=== PATIENT | female | born 1980 ===

== ENCOUNTER 2023-04-11 06:10 | Observation (INO) | payer BC ==
[2023-04-11] MEDS ORDERED: CEFOXITIN SODIUM 2 GM/VIAL ONE (06:33)
[2023-04-11] MEDS ORDERED: Ringers Lactate 1,000 ML IV ONE ×2 (06:34→10:17)
[2023-04-11] MEDS ORDERED: BUPIVACAINE 0.25% PF 30 ML VIAL ONE (06:51)
[2023-04-11] MEDS ORDERED: NEOSTIGMINE 1 MG/ML -10 ML VIAL ONE (07:14)
[2023-04-11] MEDS ORDERED: ROCURONIUM 50 MG/5 ML VIAL IV ONE ×3 (07:14→11:12)
[2023-04-11] MEDS ORDERED: LIDOCAINE 2% MPF 5 ML VIAL ONE (07:14)
[2023-04-11] MEDS ORDERED: propofoL 200 MG/20 ML VIAL IV ONE ×2 (07:14→09:42)
[2023-04-11] MEDS ORDERED: GLYCOPYRROLATE 0.2 MG/ML SYR ONE (07:14)
[2023-04-11] MEDS ORDERED: ONDANSETRON 4 MG/2 ML VIAL ONE ×2 (07:14→09:44)
[2023-04-11] MEDS ORDERED: FENTANYL CITR 100 MCG/2 ML ONE ×3 (07:14→13:13)
[2023-04-11] MEDS ORDERED: MIDAZOLAM HCL 2 MG/2 ML INJ ONE ×2 (07:15→09:43)
[2023-04-11 07:19] LABS: Albumin 4.2 g/dL (3.4-5.0); Bilirubin Total 2.7 mg/dL (0.2-1.0); Potassium 3.7 mEq/L (3.5-5.1); Protein, Total 7.6 g/dL (6.4-8.2)
[2023-04-11] MEDS ORDERED: LIDOCAINE 1% MPF 5 ML VIAL ONE (09:42)
[2023-04-11] MEDS ORDERED: dexAMETHasone 4 MG/ML VIAL ONE ×2 (09:44→14:07)
[2023-04-11] MEDS ORDERED: KETOROLAC 30 MG/ML INJ ONE (10:44)
--- NOTE | 2023-04-11 13:19 | P.OP ---
Preoperative diagnosis: Choledocholithiasis with cholecystitis Postoperative diagnosis: Choledocholithiasis with cholecystitis Primary procedure: Laparoscopic Cholecystectomy with ICG and Contrast Cholaniography with inte Secondary procedure: Laparoscopic Common bile duct exploration Anesthesia: GETA + Local Estimated blood loss: <10cc Specimen: Gallbladder Findings: Filling defect noted, completion cholangiograpy clear Complications: None Drain(s): ERIKA drain (10mm Flat) Transferred to: Recovery Room Condition: Good
--- NOTE | 2023-04-11 13:22 | EKG ---
Test Date: 2023-04-11 Test Time: 07:39:32 Oiler Helper: TF MEASUREMENT RESULTS: Intervals: Rate: 73 MO: 138 QRSD: 74 QT: 390 QTc: 429 [place]: P: 56 MO: 138 QRS: 35 T: 44 INTERPRETIVE STATEMENTS: Normal sinus rhythm Normal ECG No previous ECG available for comparison Electronically Signed On 04-11-23 13:22:11 COIN WRAPPING MACHINE OPERATOR by Lenin Manjarrez
[2023-04-11] MEDS ORDERED: ONDANSETRON 4 MG/2 ML VIAL IV PRN (13:44)
[2023-04-11] MEDS ORDERED: PROMETHAZINE INJ 25 MG/ML AMP ONE (13:53)
--- NOTE | 2023-04-11 14:24 | RAD REPORT ---
EXAM DESCRIPTION: RAD - Cholangiogram Oper-Xray Or - 04/11/2023 2:13 pm CLINICAL HISTORY: LAP KIRSTEN WITH IOC COMPARISON: <Comparisons> FINDINGS: Cystic duct injection was performed by operating surgeon. Common duct is normal in size. M ultiple rounded lucencies within the common duct proximally favored to represent small air bubbles. Total fluoro time: 1.4 minutes
[2023-04-11] MEDS: D5.45NS W/KCL 20MEQ 1,000 ML IV SCH (14:50)
[2023-04-11 15:19] VITALS: BMI 39.2
[2023-04-11] MEDS: INSULIN REGULAR (HUMAN) 100 UNIT/ML SQ SCH ×2 (16:27→21:00)
[2023-04-11] MEDS: PIPER TAZO 3.375 GM in NA CHLORIDE 0.9% 100 ML IV SCH (16:52)
[2023-04-11] MEDS: HYDROCODONE/APAP 7.5/325 MG TAB PO PRN ×2 (16:58→23:46)
[2023-04-11] MEDS: HYDROMORPHONE HCL 1 MG/ML INJ IV PRN (20:09)
[2023-04-11 23:33] VITALS: O2SAT 99
--- NOTE | 2023-04-12 00:08 | OP ---
Date of Procedure: 04/11/2023 Surgeon: Andreas Peralta MD, Preoperative Diagnoses: Choledocholithiasis with cholecystitis. Postoperative Diagnoses: Choledocholithiasis with cholecystitis. Procedure Performed: Laparoscopic cholecystectomy with indocyanine green cholangiography, contrast c holangiography with intraoperative interpretation and laparoscopic common bile duct exploration with SpyGlass technology. Anesthesia: General endotracheal plus local with 0.25% Marcaine. Estimated Blood Loss: Less than 10 cc. Specimen: Gallbladder. Findings: There was a filling defect noted on cholangiography and as such, a laparoscopic common christiano e duct exploration was performed. I believe the stone was passed into the duodenum and completion ch olangiography was clear. Complications: None. Drains: A 10 mm flat ERIKA drain placed in the subhepatic fossa. Disposition: Patient transferred to recovery room in good condition. Procedure In Detail: After informed consent was obtained, patient brought to the operating room, pre pped and draped in usual sterile fashion. After adequate anesthesia was achieved, I anesthetized the area in the supraumbilical position down to subcutaneous tissues. A 5 mm 0 degree optical trocar wa s introduced in the abdomen without incident or complication. Insufflation was obtained to 15 mmHg a t this time. There was no injury to vital structures including the abdomen. Three additional trocar s were placed, one in the epigastric, one in the right upper quadrant, one in the right mid abdomen. All these were similarly anesthetized, sharply incised. A 5 mm trocar was placed under direct visua lization without incident or complication. The umbilical trocar was then upsized to [address] visualization without incident or complication. At this point, I dissected down to grasp the gall bladder and place it towards the patient's right shoulder, dissection to kidney down and the critical view of safety was obtained after 2 structures were identified and identified both the cystic duct, cystic artery. I placed double titanium clips on the cystic artery at this point and ligated the str ucture after critical view of safety was obtained. At this point, an indocyanine green cholangiograp hy verified the anatomy. At this point, I circumferentially dissected free the cystic duct once agai n, skeletonized the structure, made a small mateus incision at the insertion site of the cystic duct ga llbladder junction, placed a clip on the proximal side. I then dissected down to place the cholangio gram catheter. Cholangiogram was shot at this point with 50:50 Isovue. At this point, I visualized the cholangiogram and saw a possible filling defect near the cystic duct, common duct junction. Slig htly superior to that, there were several filling defects consistent with possible stones and as such , at this point, a wire was placed after removal of the cholangiogram catheter. The sheath was intro duced at this point. The wire was advanced into the duodenum. X-ray confirmed the position in the d uodenum at this point. I then placed the introducer sheath and attempted to place the SpyGlass jesenia dochoscope into the lumen. However, it was difficult. At this point, sequential dilatation was perf ormed with 6 mm balloons on 2 passes, both at the distal aspect and right at the orifice. At this po int, I then placed introducer sheath under irrigation. I then advanced the choledochoscope into the cystic duct and down into the common bile duct. At this point, I passed it all the way to the ampull a of Vater. At this point, the area appeared clean and no additional residual material was seen with the wire advanced all the way through this area. There was a slightly abnormal appearance to the am maximiliano at this point, and as such, I backed the camera out at this point. No bleeding or additional m aneuvers required at this point. I then removed the wire and the camera at the same time, reintroduc ed the cholangiogram catheter, shot a completion cholangiogram, which showed no filling defects and e verything appeared normal with good filling of the duodenum, which was brisk and a nice taper appeara nce. At this point, I proceeded to place a double titanium clips on the proximal side of the cystic duct and I placed a 2-0 Vicryl Endoloop on this as well with good approximation tissue. The gallblad era was then removed from hepatic fossa, sent off for pathologic examination after being placed into an EndoCatch bag and being removed through the umbilical trocar. The area was copiously irrigated, s uctioned out completely dry. I then took a 10 mm flat ERIKA drain, placed in the subhepatic fossa, brou ght it out to the lateral-most trocar site inferiorly, secured with a drain stitch, which was a 2-0 n ylon suture. The area was copiously irrigated once again. Inspection showed no leakage of bile or b leeding at the end the procedure and as such, remaining effluent was suctioned out. The umbilical tr ocar site was then closed using a Jacoby-Antonia suture passer with 0 Vicryl interrupted fashion wit h good approximation of tissues. The abdomen was completely desufflated under direct visualization w ithout incident or complication. Remaining trocars removed. All skin incisions were then copiously irrigated, closed with a 4-0 Monocryl in a running fashion. Dermabond placed over top. The patient tolerated the procedure without incident or complication, transferred to PACU in good condition. All counts correct at the end of the case. SHAW/SONALI Voice ID: [id number] Report ID: [id number]
[2023-04-12] MEDS: D5.45NS W/KCL 20MEQ 1,000 ML IV SCH (00:36)
[2023-04-12] MEDS: PIPER TAZO 3.375 GM in NA CHLORIDE 0.9% 100 ML IV SCH ×2 (01:00→08:39)
[2023-04-12] MEDS: HYDROMORPHONE HCL 1 MG/ML INJ IV PRN (01:50)
[2023-04-12 03:36] LABS: Absolute Lymphocytes (CBC) 0.9 K/uL (0.7-4.9); Hematocrit 39.1 % (36.0-45.0); Lymphocytes % 7.3 % (15.3-44.8); MCV 88.4 fL (80-100); MPV 9.5 fL (7.6-11.3); Platelets 210 thou/uL (152-406); RBC Red Blood Cell Count 4.42 M/uL (3.86-4.86)
[2023-04-12 04:03] LABS: Albumin 3.4 g/dL (3.4-5.0); Bilirubin Total 1.4 mg/dL (0.2-1.0); Potassium 4.2 mEq/L (3.5-5.1); Protein, Total 6.8 g/dL (6.4-8.2)
[2023-04-12 04:25] LABS: Blood Morphology Comment NOT SEEN (NOT SEEN); Platelet Estimate ADEQ
[2023-04-12] MEDS: INSULIN REGULAR (HUMAN) 100 UNIT/ML SQ SCH ×2 (07:30→11:30)
[2023-04-12] MEDS: ENOXAPARIN 30 MG/0.3 ML SQ SCH ×2 (08:38→08:49)
[2023-04-12] MEDS: HYDROCODONE/APAP 7.5/325 MG TAB PO PRN (10:40)
[2023-04-12 12:46] VITALS: BP 140/79; TEMP 97.6
== END 2023-04-12 12:44 | disposition home or self-care (01) ==
LOC: PRE 06:10 → 2ND 14:34
PROVIDERS: ADMIT Surgery; ATTEND Surgery
PROC: BF50200 Other Imaging of Bile Ducts using Fluorescing Agent, Indocyanine Green Dye, Intraoperative (ICD-10-PCS; 2023-04-11)
PROC: 0FT44ZZ Resection of Gallbladder, Percutaneous Endoscopic Approach (ICD-10-PCS; principal; 2023-04-11 08:00)
DX: K80.10 Calculus of gallbladder with chronic cholecystitis without obstruction (principal); E66.9 Obesity, unspecified
CPT/HCPCS: 36415; 74300; 80053; 81025; 83690; 85025; 88304; 93005; 94010; G0378; G0379; J0694; J1100; J1170; J1650; J2001; J2250; J2405; J2543; J2550; J2704; J2710; J3010; J7120; Q9967